=== PATIENT | female | born 1950 | race Caucasian/White ===

== ENCOUNTER → 2020-03-10 13:06 | Outpatient (CLI) | payer MEDICARE, OTHER, SELFPAY ==
--- NOTE | ~2020-03-10 | DEXA_ITS ---
Bone Density Report Name: Alyssa Mcneil Age: 70 Sex: Female Ethnicity: White Date of : 1950 Indication: osteopenia; monitoring treatment; prior fracture; Referring Provider: BIANCA MARTINEZ Study: Bone densitometry was performed. Exam Date: March 10, 2020 Accession number: [id number] Bone Density: Region BMD T-score Z-score Classification AP Spine (L1-L4) 0.861 -1.7 0.4 Osteopenia Femoral Neck (Left) 0.585 -2.4 -0.6 Osteopenia Total Hip (Left) 0.734 -1.7 -0.3 Osteopenia Femoral Neck (Right) 0.576 -2.5 -0.7 Osteoporosis Total Hip (Right) 0.712 -1.9 -0.4 Osteopenia Total Hip Mean 0.723 -1.8 -0.4 Osteopenia World Health Organization criteria for BMD impression classify patients as: Normal (T-score at or above -1.0), Osteopenia (T-score between -1.0 and -2.5), or Osteoporosis (T-score at or below -2.5). 10-year Fracture Risk: FRAX not reported because: Some T-score for Spine Total or Hip Total or Femoral Neck at or below -2.5 Treated for osteoporosis Previous Exams: Region Exam Age BMD T-score BMD Change BMD Change Date g/cm2 vs Baseline vs Previous AP Spine(L1-L4) 03/10/2020 70 0.861 -1.7 -0.194 -0.054* 02/28/2018 68 0.915 -1.2 -0.140 0.035* 01/27/2016 65 0.880 -1.5 -0.175 -0.033* 12/09/2013 63 0.913 -1.2 -0.142 0.023* 09/30/2011 61 0.889 -1.4 -0.166 -0.014 10/10/2007 57 0.903 -1.3 -0.152 -0.014 09/29/2006 56 0.917 -1.2 -0.138 -0.138 07/25/2003 53 1.055 0.1 Total Hip(Left) 03/10/2020 70 0.734 -1.7 -0.077 -0.001 02/28/2018 68 0.734 -1.7 -0.077 0.007 01/27/2016 65 0.727 -1.8 -0.084 -0.022 12/09/2013 63 0.750 -1.6 -0.061 0.018 09/30/2011 61 0.732 -1.7 -0.079 -0.039* 10/10/2007 57 0.770 -1.4 -0.041 0.039* 09/29/2006 56 0.732 -1.7 -0.080 -0.080 07/25/2003 53 0.811 -1.1 Total Hip(Right) 03/10/2020 70 0.712 -1.9 -0.149 -0.007 02/28/2018 68 0.718 -1.8 -0.142 -0.021 01/27/2016 65 0.739 -1.7 -0.121 -0.030* 12/09/2013 63 0.769 -1.4 -0.091 -0.005 09/30/2011 61 0.774 -1.4 -0.086 -0.002 10/10/2007 57 0.776 -1.4 -0.084 0.012 09/29/2006 56 0.764 -1.5 -0.096 -0.096 07/25/2003 53 0.860 -0.7
--- NOTE | ~2020-03-10 | MM_ITS ---
EXAMINATION: MM screening [facility] w jose francisco HISTORY: Screening mammogram TECHNIQUE: Craniocaudal and mediolateral oblique 3-D tomosynthesis images were obtained and synthetic 2-D images were generated. CAD analysis was submitted and interpreted. COMPARISON: 03/06/2019, 02/28/2018, 03/05/2015 bilateral digital screening mammogram examinations BREAST PARENCHYMAL COMPOSITION: The breasts are heterogeneously dense, which may obscure small masses . FINDINGS: Possible new opacity in central left breast on MLO view; diagnostic left mammogram and left breast ultrasound are recommended. Otherwise there is no evidence of suspicious mass, calcification, or architectural distortion to sugg est malignancy in either breast. There has been no other suspicious interval change. IMPRESSION: Possible new opacity in central left breast on MLO view; diagnostic left mammogram and left breast ul trasound are recommended. BI-RADS Category 0: Incomplete: Needs additional imaging evaluation. Reviewed, dictated and finalized at location A. MIXER IMPRESSION: Possible new opacity in central left breast on MLO view; diagnostic left mammog keven and left breast ultrasound are recommended. BI-RADS Category 0: Incomplete: Needs additional imaging evaluation.
== END ==
PROVIDERS: PCP Family Medicine; Visit Provider Obstetrics & Gynecology
DX: Z12.31 Encounter for screening mammogram for malignant neoplasm of breast (principal); Z78.0 Asymptomatic menopausal state; R92.8 Other abnormal and inconclusive findings on diagnostic imaging of breast; M85.88 Other specified disorders of bone density and structure, other site; M85.852 Other specified disorders of bone density and structure, left thigh; M85.851 Other specified disorders of bone density and structure, right thigh; M81.0 Age-related osteoporosis without current pathological fracture
CPT/HCPCS: 77063; 77067; 77080

== ENCOUNTER → 2020-04-03 09:13 | Outpatient (CLI) | payer MEDICARE, OTHER, SELFPAY ==
--- NOTE | ~2020-04-03 | MMUS_ITS ---
EXAMINATION: MM diagnostic mammo unilat LT, US breast LT limited HISTORY: Left breast asymmetry on screening mammogram TECHNIQUE: Additional 3-D tomosynthesis images of the left breast were performed and synthetic 2-D im ages were generated. CAD analysis was submitted and interpreted. High resolution limited left breast ultrasound was performed. COMPARISON: 03/10/2020, 03/06/2019, 02/28/2018, 02/23/2017 FINDINGS: MAMMOGRAPHIC FINDINGS: There is a return to baseline fibroglandular appearance with spot compression of the left breast. No suspicious mass, calcification, or architectural distortion are identified. ULTRASOUND: There is no evidence of focal abnormal solid or cystic lesion in the vicinity of the mammographic fin ding in question. IMPRESSION: 1. No mammographic or sonographic evidence of malignancy. 2. Recommend routine screening mammography in one year. BI-RADS Category 1: Negative Reviewed, dictated and finalized at location A. REFINISHER IMPRESSION: 1. No mammographic or sonographic evidence of malignancy. 2. Recommend routine screening mammography in one year. BI-RADS Category 1: Negative
== END ==
PROVIDERS: Visit Provider Obstetrics & Gynecology
DX: R92.8 Other abnormal and inconclusive findings on diagnostic imaging of breast (principal)
CPT/HCPCS: 76642; 77065

== ENCOUNTER 2020-10-05 14:14 | Outpatient (CLI) | payer MEDICARE, OTHER, SELFPAY | END 2020-10-05 14:15 | disposition home or self-care (01) | LOC: ANHAUDASC 14:17 | PROVIDERS: PCP Family Medicine; Visit Provider Family Medicine | DX: H90.3 Sensorineural hearing loss, bilateral (principal) | CPT/HCPCS: 92557; 92567 ==

== ENCOUNTER 2020-12-02 14:00 | Outpatient (RCR) | payer SELFPAY | END 2021-01-12 23:59 | disposition home or self-care (01) | LOC: ANHAUDASC 14:00 | PROVIDERS: PCP Family Medicine; Visit Provider Family Medicine | DX: H91.90 Unspecified hearing loss, unspecified ear (principal) | CPT/HCPCS: 99199; V5261 ==

== ENCOUNTER → 2021-01-08 14:37 | Outpatient (CLI) | payer MEDICARE, OTHER, SELFPAY ==
--- NOTE | ~2021-01-08 | XR_ITS ---
EXAMINATION: XR foot RT min 3V DATE: 01/08/2021 14:57 INDICATION: Right foot pain TECHNIQUE: Dorsoplantar, two oblique and lateral views of the right foot were obtained. COMPARISON: None. FINDINGS: Bone alignment is normal. Postoperative change of prior bunionectomy and chronic osteotomy at the med ial head of the first metatarsal. No fracture. 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 Alfonso tional mild osteoarthritis at several of the tarsal metatarsal and interphalangeal joints. Soft tissu es are unremarkable. IMPRESSION: 1. No acute osseous abnormality. 2. 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 Reviewed, dictated and finalized at location A.
== END ==
PROVIDERS: PCP Family Medicine; Visit Provider Physician Assistant
DX: M19.071 Primary osteoarthritis, right ankle and foot (principal)
CPT/HCPCS: 73630

== ENCOUNTER → 2021-03-17 13:26 | Outpatient (CLI) | payer MEDICARE, OTHER, SELFPAY ==
--- NOTE | ~2021-03-17 | MM_ITS ---
EXAMINATION: MM screening [facility] w jose francisco HISTORY: Screening mammogram TECHNIQUE: Craniocaudal and mediolateral oblique 3-D tomosynthesis images were obtained and synthetic 2-D images were generated. Bilateral rotated lateral cc views. CAD analysis was submitted and interp reted. COMPARISON: 04/03/2020 diagnostic left mammogram and limited left breast ultrasound examination 03/10/2020, 03/06/2019, 02/28/2018 bilateral screening mammogram examinations BREAST PARENCHYMAL COMPOSITION: The breasts are heterogeneously dense, which may obscure small masses . FINDINGS: There is no evidence of suspicious mass, calcification, or architectural distortion to sugg est malignancy in either breast. There has been no suspicious interval change. IMPRESSION: 1. No mammographic evidence of malignancy. 2. Recommend routine screening mammography in one year. BI-RADS Category 1: Negative Reviewed, dictated and finalized at location A. SE REFINER OPERATOR
== END ==
PROVIDERS: PCP Family Medicine; Visit Provider Obstetrics & Gynecology
DX: Z12.31 Encounter for screening mammogram for malignant neoplasm of breast (principal)
CPT/HCPCS: 77063; 77067

== ENCOUNTER 2021-07-28 00:16 | Day surgery (SDC) | payer MEDICARE, SELFPAY ==
[2021-07-15 14:52] VITALS: BMI 23.4
--- NOTE | 2021-07-27 10:55 | WPDANESEPPF ---
Anes - Initial Pre Proc Eval Procedure: Operation Date: 07/28/21 08:30 Proposed Procedures p Screening Colonoscopy - Cristian Devlin MD Date/Time: 07/27/21 10:55 Surgeon: Cristian Devlin MD Pre Op Diagnosis: hx of colon polyps Patient Data Age: 71 Gender: F Height: 1.63 m Weight: 62 kg Allergies Allergy/AdvReac Type Severity Reaction Status Date / Time codeine Allergy Unknown rapid Verified 07/28/21 07:12 heart beat Home Medications Medication Instructions Recorded Confirmed Type levothyroxine 88 mcg tablet 88 mcg PO DAILY 01/07/20 07/15/21 History multivitamin,dt-sggo-kprwijwe 1 tablet PO DAILY 01/07/20 07/15/21 History calcium carbonate 600 mg-vitamin 1 cap PO DAILY 01/14/21 07/15/21 History D3 12.5 mcg (500 unit) capsule ospemifene 60 mg tablet 60 mg PO DAILY #90 tablet 03/30/21 07/15/21 Rx Patient hx anesthesia problems: none Family hx anesthesia problems: none Results Review: All pre-operative results and documents have been reviewed as part of the pre-operative evaluation. [facility] Past Medical History Medical History History of abnormal cells from cervix History of thyroid cancer Surgical History Surgical History History of thyroidectomy, total Family History Family History Sibling Family history of diabetes mellitus in first degree relative Mother Patient's mother is Social History Social History Smoking status: Never smoker Second hand tobacco smoke exposure: No Alcohol intake: current Drinks per week: 5 Substance use: unknown Living arrangements: with family Spiritual care concerns: No Anes - Eval Final PreProcedure Day of Procedure 07/27/21 10:55 Patient weight: normal Heart: regular rate and rhythm Lungs: clear to auscultation and normal air movement Airway: Mallampati scale class II Neurological: alert and oriented Last oral intake: >/= 8 hours ASA classification: II Emergent: no Anesthetic plan: proceed Anesthesia type and monitoring: general GIVS and standard monitoring Results Review: All pre-operative results and documents have been reviewed as part of the pre-operative evaluation. Informed Consent: The patient's anesthetic plan and its attendant risks and benefits were discussed with the patient/family/POA. Questions were solicited and answers provided to the satisfaction of the patient/family/POA.
[2021-07-28 07:14] VITALS: BP 111/41; PULSE 66; RESP 17; TEMP 36.4; O2SAT 100
--- NOTE | 2021-07-28 07:20 | PM.HPGS ---
History of Present Illness History of Present Illness Consent: Risks, benefits, and alternatives have been discussed and questions answered. Patient agrees to proceed with procedure. Chief complaint: hx of colon polyps Narrative: Alyssa Mcneil is a 71 year old female Referred for colon cancer screening. She had a polyp removed about 4 years ago. Review of Systems Review of Systems: All systems reviewed & are unremarkable except as noted in HPI and below PMFSH Past Medical History Medical History History of abnormal cells from cervix History of thyroid cancer Surgical History Surgical History History of thyroidectomy, total Family History Family History Sibling Family history of diabetes mellitus in first degree relative Mother Patient's mother is Social History Social History Smoking status: Never smoker Second hand tobacco smoke exposure: No Alcohol intake: current Drinks per week: 5 Substance use: unknown Living arrangements: with family Spiritual care concerns: No Meds Home Medications and Allergies Home Medications Medication Instructions Recorded Confirmed Type levothyroxine 88 mcg tablet 88 mcg PO DAILY 01/07/20 07/15/21 History multivitamin,rs-twiw-nryethtq 1 tablet PO DAILY 01/07/20 07/15/21 History calcium carbonate 600 mg-vitamin 1 cap PO DAILY 01/14/21 07/15/21 History D3 12.5 mcg (500 unit) capsule ospemifene 60 mg tablet 60 mg PO DAILY #90 tablet 03/30/21 07/15/21 Rx Allergies Allergy/AdvReac Type Severity Reaction Status Date / Time codeine Allergy Unknown rapid Verified 07/28/21 07:12 heart beat Vital Signs Vital Signs - 24 hr 07/28/21 07:14 Temperature 36.4 C Pulse Rate 66 Respiratory Rate 17 Blood Pressure 111/41 L Pulse Oximetry 100 Exam Resp: Auscultation: clear to auscultation bilaterally Cardio: Rate: regular rate Rhythm: regular rhythm GI: GI Palp: Yes Soft to palpation and No Tenderness to palpation present (GI) Assessment and Plan Assessment and plan (1) Colon cancer screening: Code(s): Z12.11 - Encounter for screening for malignant neoplasm of colon Status: Acute Assessment and Plan: Colonoscopy with possible biopsy or polypectomy or cautery or injection of substances.
[2021-07-28] MEDS: LACTATED RINGERS 1,000 ML 150 ML IV CONT (07:27)
[2021-07-28] MEDS: SIMETHICONE ORAL SUSPENSION 20 MG/0.3 ML 30 ML BOTTLE 0.6 ML IRRIGATION (08:20)
[2021-07-28 08:30] VITALS: BP 102/60; PULSE 60; RESP 20; O2SAT 99
[2021-07-28 08:40] VITALS: BP 108/85; PULSE 59; RESP 18; O2SAT 100
[2021-07-28 08:50] VITALS: BP 134/73; PULSE 49; RESP 16; O2SAT 100
== END 2021-07-28 08:56 | disposition home or self-care (01) ==
PROVIDERS: PCP Family Medicine; Visit Provider Internal Medicine Gastroenterology
PROC: 0DJD8ZZ Inspection of Lower Intestinal Tract, Via Natural or Artificial Opening Endoscopic (ICD-10-PCS; CPT 45378; principal; 2021-07-28 08:30)
DX: Z12.11 Encounter for screening for malignant neoplasm of colon (principal); Z86.010 Personal history of colon polyps; E89.0 Postprocedural hypothyroidism; Z85.850 Personal history of malignant neoplasm of thyroid
CPT/HCPCS: G0105; J2704; J7120

== ENCOUNTER 2022-06-01 13:47 | Outpatient (CLI) | payer MEDICARE, SELFPAY | END 2022-06-01 13:48 | disposition home or self-care (01) | LOC: ANHAUDASC 13:48 | PROVIDERS: PCP Family Medicine; Visit Provider Physician Assistant | DX: H90.3 Sensorineural hearing loss, bilateral (principal) | CPT/HCPCS: 92557; 92567 ==

== ENCOUNTER → 2022-08-03 13:16 | Outpatient (CLI) | payer MEDICARE, SELFPAY ==
--- NOTE | ~2022-08-03 | MM_ITS ---
EXAMINATION: MM screening [facility] BI w jose francisco HISTORY: Screening mammogram TECHNIQUE: Craniocaudal and mediolateral oblique 3-D tomosynthesis images were obtained and synthetic 2-D images were generated. CAD analysis was submitted and interpreted. COMPARISON: 03/17/2021, 04/03/2020, 03/10/2020, 03/06/2019 BREAST PARENCHYMAL COMPOSITION: The breasts are heterogeneously dense, which may obscure small masses . FINDINGS: No suspicious mass, calcification, or architectural distortion are identified in either moira ast to suggest malignancy. There has been no suspicious interval change. IMPRESSION: 1. No mammographic evidence of malignancy. 2. Recommend routine screening mammography in one year. BI-RADS Category 1: Negative Reviewed, dictated and finalized at location A.
--- NOTE | ~2022-08-03 | DEXA_ITS ---
Bone Density Report Name: RITA TRAN Age: 72 Sex: Female Ethnicity: White Date of : 1950 Indication: osteopenia; monitoring treatment; height loss; prior fracture; cancer; postmenopausal Referring Provider: BIANCA MARTINEZ Study: Bone densitometry was performed. Exam Date: August 03, 2022 Accession number: [id number] Bone Density: Region BMD T-score Z-score Classification AP Spine (L1-L4) 0.892 -1.4 0.8 Osteopenia Femoral Neck (Left) 0.582 -2.4 -0.5 Osteopenia Total Hip (Left) 0.706 -1.9 -0.4 Osteopenia Femoral Neck (Right) 0.592 -2.3 -0.4 Osteopenia Total Hip (Right) 0.701 -2.0 -0.4 Osteopenia Total Hip Mean 0.704 -2.0 -0.4 Osteopenia World Health Organization criteria for BMD impression classify patients as: Normal (T-score at or above -1.0), Osteopenia (T-score between -1.0 and -2.5), or Osteoporosis (T-score at or below -2.5). 10-year Fracture Risk: FRAX not reported because: Treated for osteoporosis Previous Exams: Region Exam Age BMD T-score BMD Change BMD Change Date g/cm2 vs Baseline vs Previous AP Spine(L1-L4) 08/03/2022 72 0.892 -1.4 -0.163 0.031* 03/10/2020 70 0.861 -1.7 -0.194 -0.054* 02/28/2018 68 0.915 -1.2 -0.140 0.035* 01/27/2016 65 0.880 -1.5 -0.175 -0.033* 12/09/2013 63 0.913 -1.2 -0.142 0.023* 09/30/2011 61 0.889 -1.4 -0.166 -0.014 10/10/2007 57 0.903 -1.3 -0.152 -0.014 09/29/2006 56 0.917 -1.2 -0.138 -0.138 07/25/2003 53 1.055 0.1 Total Hip(Left) 08/03/2022 72 0.706 -1.9 -0.105 -0.028* 03/10/2020 70 0.734 -1.7 -0.077 -0.001 02/28/2018 68 0.734 -1.7 -0.077 0.007 01/27/2016 65 0.727 -1.8 -0.084 -0.022 12/09/2013 63 0.750 -1.6 -0.061 0.018 09/30/2011 61 0.732 -1.7 -0.079 -0.039* 10/10/2007 57 0.770 -1.4 -0.041 0.039* 09/29/2006 56 0.732 -1.7 -0.080 -0.080 07/25/2003 53 0.811 -1.1 Total Hip(Right) 08/03/2022 72 0.701 -2.0 -0.159 -0.011 03/10/2020 70 0.712 -1.9 -0.149 -0.007 02/28/2018 68 0.718 -1.8 -0.142 -0.021 01/27/2016 65 0.739 -1.7 -0.121 -0.030* 12/09/2013 63 0.769 -1.4 -0.091 -0.005 09/30/2011 61 0.774 -1.4 -0.086 -0.002 10/10/2007 57 0.776 -1.4 -0.084 0.012 09/29/2006 56 0.764 -1.5 -0.0
== END ==
PROVIDERS: PCP Family Medicine; Visit Provider Obstetrics & Gynecology
DX: Z12.31 Encounter for screening mammogram for malignant neoplasm of breast (principal); M81.0 Age-related osteoporosis without current pathological fracture; M85.88 Other specified disorders of bone density and structure, other site; M85.852 Other specified disorders of bone density and structure, left thigh; M85.851 Other specified disorders of bone density and structure, right thigh
CPT/HCPCS: 77063; 77067; 77080

== ENCOUNTER 2023-10-12 12:31 | Outpatient (CLI) | payer MEDICARE, SELFPAY ==
--- NOTE | ~2023-10-12 | MM_ITS ---
EXAMINATION: MM screening [facility] BI w jose francisco HISTORY: Screening mammogram TECHNIQUE: Craniocaudal and mediolateral oblique 3-D tomosynthesis images were obtained and synthetic 2-D images were generated. CAD analysis was submitted and interpreted. COMPARISON: 08/03/2022, 03/17/2021, 04/03/2020 BREAST PARENCHYMAL COMPOSITION:Dense: The breasts are heterogeneously dense, which may obscure small masses. FINDINGS: No suspicious mass, calcification, or architectural distortion are identified in either moira ast to suggest malignancy. There has been no suspicious interval change. IMPRESSION: No mammographic evidence of malignancy. Recommend routine screening mammography in one year. BI-RADS Category 1: Negative Reviewed, dictated and finalized at location .
== END 2023-10-12 12:32 ==
LOC: MICIMG 12:33
PROVIDERS: PCP Family Medicine; Visit Provider Obstetrics & Gynecology
DX: Z12.31 Encounter for screening mammogram for malignant neoplasm of breast (principal)
CPT/HCPCS: 77063; 77067

== ENCOUNTER 2023-11-01 12:50 | Outpatient (CLI) | payer MEDICARE, SELFPAY | END 2023-11-01 12:51 | disposition home or self-care (01) | LOC: ANHAUDASC 12:51 | PROVIDERS: PCP Family Medicine; Visit Provider Family Medicine | DX: H90.3 Sensorineural hearing loss, bilateral (principal) | CPT/HCPCS: 92557; 92567 ==

== ENCOUNTER 2025-01-14 13:30 | Outpatient (CLI) | payer MEDICARE, SELFPAY ==
--- NOTE | ~2025-01-14 | DEXA_ITS ---
Bone Density Report Name: RITA TRAN Age: 74 Sex: Female Ethnicity: White Date of : 1950 Indication: osteopenia; height loss; prior fracture; cancer; Referring Provider: BIANCA MARTINEZ Study: Bone densitometry was performed. Exam Date: January 14, 2025 Accession number: [id number] Bone Density: Region BMD T-score Z-score Classification AP Spine(L1, L2, L3) 0.828 -1.7 0.6 Osteopenia Femoral Neck (Left) 0.531 -2.9 -0.9 Osteoporosis Total Hip (Left) 0.666 -2.3 -0.5 Osteopenia Femoral Neck (Right) 0.548 -2.7 -0.7 Osteoporosis Total Hip (Right) 0.675 -2.2 -0.5 Osteopenia Total Hip Mean 0.671 -2.3 -0.5 Osteopenia World Health Organization criteria for BMD impression classify patients as: Normal (T-score at or above -1.0), Osteopenia (T-score between -1.0 and -2.5), or Osteoporosis (T-score at or below -2.5). 10-year Fracture Risk: FRAX not reported because: Some T-score for Spine Total or Hip Total or Femoral Neck at or below -2.5 Previous Exams: -- Region Exam Age BMD T-score BMD Change BMD Change Date g/cm2 vs Baseline vs Previous -- AP Spine (L1-L3) 01/14/2025 74 0.828 -1.7 -24.0%# -3.5%* 08/03/2022 72 0.858 -1.5 -21.2%# -0.5% 03/10/2020 70 0.862 -1.4 -20.8%# -5.5%* 02/28/2018 68 0.913 -1.0 -16.2%# 1.3% 01/27/2016 65 0.901 -1.1 -17.3%# -2.1% 12/09/2013 63 0.920 -0.9 -15.5%# 2.6%* 09/30/2011 61 0.897 -1.1 -17.7%# -1.5% 10/10/2007 57 0.910 -1.0 -16.4%# -0.9% 09/29/2006 56 0.919 -0.9 -15.6%# -15.6%# 07/25/2003 53 1.089 0.6 Total Hip(Left) 01/14/2025 74 0.666 -2.3 -17.9%# -5.7%* 08/03/2022 72 0.706 -1.9 -12.9%# -3.8%* 03/10/2020 70 0.734 -1.7 -9.5%# -0.1% 02/28/2018 68 0.734 -1.7 -9.4%# 1.0% 01/27/2016 65 0.727 -1.8 -10.3%# -3.0% 12/09/2013 63 0.750 -1.6 -7.6%# 2.5% 09/30/2011 61 0.732 -1.7 -9.8%# -5.0%* 10/10/2007 57 0.770 -1.4 -5.0%# 5.3%* 09/29/2006 56 0.732 -1.7 -9.8%# -9.8%# 07/25/2003 53 0.811 -1.1 Total Hip(Right) 01/14/2025 74 0.675 -2.2 -21.5%# -3.7% 08/03/2022 72 0.701 -2.0 -18.5%# -1.5% 03/10/2020 70 0.712 -1.9 -17.3%# -0.9% 02/28/2018 68 0.718 -1.8 -16.5%# -2.8% 01/27/2016 65 0.739 -1.7 -14.1%# -3.9%* 12/09/2013 63 0.769 -1.4 -10.6%# -0.6% 09/30/2011 61 0.774 -1.4 -10.0%# -0.3% 10/10/2007 57 0.776 -1.4 -9.8%# 1.6% 09/29/2006 56 0.764 -1.5 -11.2%# -11.2%# 07/25/2003 53 0.860 -0.7 -- *Denotes significance at 95% confidence level, LSC for AP Spine = 0.022 g/cm2, LSC for Total Hip = 0.027 g/cm2 Rate of change results reflect vertebral levels common to all scans # Denotes dissimilar scan types or analysis methods Clinical Information Provided by Patient: Has had a low trauma fracture Has used the following medications: Boniva (i.e. ibandronate), Vitamin D, Calcium Has the following medical conditions: Cancer Patient maximum height was 64.5 Menopause Age: 55 Onset of menses at age 16 Number of children 2 Impression: The patient has established osteoporosis, based on the Left Femoral Neck T-score and the existence of a prior fracture. The patient has risk factors, including: previous fracture. The BMD for the AP Spine (L1-L3) decreased, changing by -3.5% since the last DXA exam. The BMD for the Total Hip(Left) decreased, changing by -5.7% since the last DXA exam. Discussion: HIGH RISK OF FRACTURE. BONE DENSITY IS UNDESIRABLY LOW AT ONE OR MORE SKELETAL SITES, CONSISTENT WITH POSTMENOPAUSAL OSTEOPOROSIS. This patient's lowest T-score, in a patient who has previously fractured, meets the World Health Organization's (WHO) criteria for severe osteoporosis. In untreated patients, the risk of osteoporotic fracture increases approximately two-fold for each 1.0 SD decrease in T-score. Low bone density is not the only risk factor for fracture; also consider factors such as patient's age, frailty or poor health, risk of falling, risk of injury, previous osteoporotic fracture, family history of osteoporosis, cigarette smoking, low body weight, etc. Not everyone with low bone mineral density has osteoporosis; osteomalacia and other metabolic bone disorders should also be considered. Patients who have osteoporosis should be evaluated for specific diseases and conditions (secondary causes) that may cause or contribute to bone loss. The [place] [employer]ocrinologists (AACE) and National Osteoporosis Foundation (NOF) recommend pharmacologic intervention for all postmenopausal women whose T-score is in this range. The patient should follow a healthful lifestyle (good nutrition with adequate calcium and vitamin D, and appropriate weight-bearing exercise). Follow-Up: Consider a repeat BMD and Vertebral Fracture Assessment (VFA) exam in 2 years or sooner if medically necessary, to reassess this patient's status. Reported by: NEFTALY on 01/14/2025 1:59:00 PM. Reviewed, dictated and finalized at location A.
--- NOTE | ~2025-01-14 | MM_ITS ---
EXAMINATION: MM screening [facility] BI w jose francisco HISTORY: Screening TECHNIQUE: Craniocaudal and mediolateral oblique 3-D tomosynthesis images were obtained and synthetic 2-D images were generated. CAD analysis was submitted and interpreted. COMPARISON: Comparison to multiple prior studies sequentially, with oldest reviewed study dated 03/06/2019. BREAST PARENCHYMAL COMPOSITION: Dense: The breasts are heterogeneously dense, which may obscure small masses FINDINGS: There is no evidence of suspicious mass, calcification, or architectural distortion to suggest malignancy in either breast. There has been no suspicious interval change. IMPRESSION: 1. No mammographic evidence of malignancy. 2. Recommend routine screening mammography in one year. BI-RADS Category 1: Negative Reviewed, dictated and finalized at location B.
== END 2025-01-14 13:31 | disposition home or self-care (01) ==
PROVIDERS: PCP Family Medicine; Visit Provider Obstetrics & Gynecology
DX: Z12.31 Encounter for screening mammogram for malignant neoplasm of breast (principal); M81.0 Age-related osteoporosis without current pathological fracture; M85.89 Other specified disorders of bone density and structure, multiple sites; Z78.0 Asymptomatic menopausal state
CPT/HCPCS: 77063; 77067; 77080